=== PATIENT | female | born 1960 | race Caucasian/White ===

== ENCOUNTER 2023-08-31 08:21 | Outpatient (CLI) | payer BC, SELFPAY ==
--- NOTE | ~2023-08-31 | CT_ITS ---
CT of the Abdomen and Pelvis: Indication: Abdominal wall cellulitis Technique: 2.5 mm axial scans were obtained through the abdomen and pelvis following intravenous adm inistration of 100 cc of Omnipaque 350. Dose reduction technique was used on this scan by utilizing a utomated exposure control and iterative reconstruction technique. The dose-length product (DLP) was 6 92.06 mGy-cm. Findings: Scans through the lung bases are unremarkable. The liver, spleen, pancreas, gallbladder, adrenals and kidneys are within normal limits. No evidence of aortic aneurysm. No lymphadenopathy. No bowel obstruction or bowel wall thickening. There is no evidence to suggest acute appendicitis. Th ere is focal skin thickening and infiltrative change in the left lower quadrant subcutaneous soft tis sues anteriorly, nonspecific. Images through the pelvis were performed. Urinary bladder unremarkable. No adnexal mass seen. No asci sami. Impression: Focal skin thickening and infiltrative change at the left lower quadrant anterior subcutaneous soft t issues. This could potentially reflect focal cellulitis, versus chronic postoperative change. Correla te with physical exam. No abscess or mass lesion evident. Reviewed, dictated and finalized at [facility]. Impression: Focal skin thickening and infiltrative change at the left lower quadrant anteri or subcutaneous soft tissues. This could potentially reflect focal cellulitis, versus chronic postoperative change. Correlate with physical exam. No abscess o r mass lesion evident.
[2023-08-31 08:47] LABS: Estimated Glomerular Filt Rate > 60
== END 2023-08-31 08:22 ==
PROVIDERS: Visit Provider Family Medicine
DX: L03.311 Cellulitis of abdominal wall (principal)
CPT/HCPCS: 74177; Q9967

== ENCOUNTER 2023-10-20 11:09 | Outpatient (CLI) | payer BC, SELFPAY ==
--- NOTE | ~2023-10-20 | DEXA_ITS ---
Bone Density Report Name: DOMENIC JEFFERSON Age: 63 Sex: Female Ethnicity: White Date of : 1960 Indication: osteopenia; height loss; prior fracture; asthma or emphysema; hysterectomy; postmenopausal Referring Provider: TIMMY KAUFFMAN Study: Bone densitometry was performed. Exam Date: October 20, 2023 Accession number: [id number] Bone Density: Region BMD T-score Z-score Classification AP Spine (L1-L4) 0.869 -1.6 0.0 Osteopenia Femoral Neck (Left) 0.706 -1.3 0.2 Osteopenia Total Hip (Left) 0.849 -0.8 0.4 Normal Femoral Neck (Right) 0.716 -1.2 0.2 Osteopenia Total Hip (Right) 0.867 -0.6 0.5 Normal Total Hip Mean 0.858 -0.7 0.5 Normal World Health Organization criteria for BMD impression classify patients as: Normal (T-score at or above -1.0), Osteopenia (T-score between -1.0 and -2.5), or Osteoporosis (T-score at or below -2.5). 10-year Fracture Risk(1): Major Osteoporotic Fracture 14% Hip Fracture 1.2% Reported Risk Factors: [place] (), Neck BMD=0.706, BMI=27.0, previous fracture (1) FRAX(R) Version 3.08. Fracture probability calculated for an untreated patient. Fracture probability may be lower if the patient has received treatment. Previous Exams: Region Exam Age BMD T-score BMD Change BMD Change Date g/cm2 vs Baseline vs Previous AP Spine(L1-L4) 10/20/2023 63 0.869 -1.6 -0.056* -0.037* 08/18/2017 57 0.905 -1.3 -0.019 -0.011 08/16/2015 55 0.917 -1.2 -0.008 -0.008 04/09/2012 52 0.925 -1.1 Total Hip(Left) 10/20/2023 63 0.849 -0.8 -0.029* -0.038* 08/18/2017 57 0.887 -0.4 0.009 0.026 08/16/2015 55 0.861 -0.7 -0.017 -0.017 04/09/2012 52 0.878 -0.5 Total Hip(Right) 10/20/2023 63 0.867 -0.6 -0.059* -0.048* 08/18/2017 57 0.915 -0.2 -0.011 0.019 08/16/2015 55 0.896 -0.4 -0.030* -0.030* 04/09/2012 52 0.926 -0.1 *Denotes significance at 95% confidence level, LSC for AP Spine = 0.022 g/cm2, LSC for Total Hip = 0.027 g/cm2 Clinical Information Provided by Patient: Has had a low trauma fracture Has used the following medications: Vitamin D, Calcium Has the following medical conditions: Asthma or Emphysema, Hysterectomy Patient maximum height was 69.5 Menopause Age: 40 Drinks caffeinated beverages Onset of m[age] at age [age] Number of children 2
== END 2023-10-20 11:10 ==
LOC: MICIMG 11:12
PROVIDERS: PCP Family Medicine
DX: M85.88 Other specified disorders of bone density and structure, other site (principal); M85.852 Other specified disorders of bone density and structure, left thigh; M85.851 Other specified disorders of bone density and structure, right thigh
CPT/HCPCS: 77080